=== PATIENT | female | born 1965 | race Caucasian/White ===

== ENCOUNTER 2016-03-28 17:16 | Emergency (ER) | payer MEDICAID ==
[~2016-03-28] VITALS: Ht 157.5 cm; Wt 59.0 kg
[2016-03-28 17:30] VITALS: BP 98/66
[2016-03-28] MEDS ORDERED: KETOROLAC TROMETH 60MG/2ML VIAL IM ONE (19:15)
== END 2016-03-28 19:38 | disposition home or self-care (01) ==
LOC: EDUNIT# 17:16 → EDBD 17:16 → ER 17:26
DX: S16.1XXA Strain of muscle, fascia and tendon at neck level, initial encounter (principal); M79.7 Fibromyalgia; M54.5 Low back pain; F41.9 Anxiety disorder, unspecified; G89.29 Other chronic pain; Z98.1 Arthrodesis status; V43.62XA Car passenger injured in collision with other type car in traffic accident, initial encounter; Y93.89 Activity, other specified; Y99.8 Other external cause status; Y92.89 Other specified places as the place of occurrence of the external cause
CPT/HCPCS: 72040; 96372; 99284; J1885